=== PATIENT | female | born 1945 | race Hispanic/Latino ===

== ENCOUNTER → 2017-12-23 | Outpatient (CLI) | payer OTHER ==
[~2017-12-23] MED LIST: GABA-531 PO; OXYB5TAB10 PO; TAMS-1 PO
== END | disposition home or self-care (01) ==
LOC: RAH 11:03
PROVIDERS: ATTEND Internal Medicine
DX: R60.0 Localized edema (principal); Z87.891 Personal history of nicotine dependence
CPT/HCPCS: 93971

== ENCOUNTER 2018-01-03 19:08 | Emergency (ER) | payer OTHER ==
[2018-01-03] MEDS ORDERED: ASPIRIN 81MG TAB.CHEW ONE (19:39)
[2018-01-03 20:02] LABS: BASOPHILS % (AUTO) 0.6 % (0.0-5.0); EOSINOPHILS % (AUTO) 0.4 % (0.0-8.0); HEMATOCRIT 36.2 % (36-48); LYMPHOCYTES % (AUTO) 12.3 % (21.0-51.0); MEAN CORPUSCULAR HEMOGLOBIN 30.9 pg (27.0-33.0); MEAN CORPUSCULAR HGB CONC 33.8 g/dL (32.0-36.0); MEAN CORPUSCULAR VOLUME 91.2 fL (79-99); MONOCYTES % (AUTO) 3.9 % (3.0-13.0); NEUTROPHILS % (AUTO) 82.8 % (40.0-77.0); PLATELET COUNT (AUTO) 268 K/uL (130-400); RED BLOOD CELL COUNT(AUTO) 3.97 MIL/uL (4.00-5.50); RED CELL DISTRIBUTION WIDTH 14.9 % (11.0-15.5); WHITE BLOOD COUNT (AUTO) 9.6 K/uL (4.8-10.8)
[2018-01-03 20:14] LABS: INR 1.02 (0.85-1.15); PARTIAL THROMBOPLASTIN TIME 27.9 SEC (26.3-35.5); PROTHROMBIN TIME 10.7 SEC (9.6-11.6)
[2018-01-03 20:23] LABS: POTASSIUM 3.9 mmol/L (3.5-5.1)
[2018-01-03 20:25] LABS: B-TYPE NATRIURETIC PEPTIDE 43 pg/mL (0-100)
[2018-01-03 20:48] LABS: ALBUMIN 3.4 g/dL (3.5-5.0); BILIRUBIN,TOTAL 0.7 mg/dL (0.2-1.0)
== END 2018-01-03 23:24 | disposition home or self-care (01) ==
LOC: EDH 19:08
DX: R07.89 Other chest pain (principal); M54.6 Pain in thoracic spine; M06.9 Rheumatoid arthritis, unspecified; Z88.6 Allergy status to analgesic agent
CPT/HCPCS: 36415; 71045; 78582; 80053; 82550; 83874; 83880; 84484; 85025; 85610; 85730; 93005; 94761; 99285; A9540; A9558

== ENCOUNTER → 2018-07-09 | Outpatient (CLI) | payer OTHER | END | disposition home or self-care (01) | LOC: RAH 12:28 | PROVIDERS: ATTEND Internal Medicine | DX: I70.90 Unspecified atherosclerosis (principal); I25.10 Atherosclerotic heart disease of native coronary artery without angina pectoris; I73.9 Peripheral vascular disease, unspecified | CPT/HCPCS: 93925 ==

== ENCOUNTER → 2018-08-13 | Outpatient (CLI) | payer OTHER | END | disposition home or self-care (01) | LOC: RAH 11:21 | PROVIDERS: ATTEND Internal Medicine | DX: R10.2 Pelvic and perineal pain (principal) | CPT/HCPCS: 76856 ==

== ENCOUNTER → 2018-08-14 | Outpatient (CLI) | payer OTHER | END | disposition home or self-care (01) | LOC: RAH 09:10 | PROVIDERS: ATTEND Internal Medicine | DX: I82.402 Acute embolism and thrombosis of unspecified deep veins of left lower extremity (principal) | CPT/HCPCS: 93971 ==

== ENCOUNTER → 2018-09-26 | Outpatient (CLI) | payer OTHER ==
[~2018-09-26] MED LIST changes: +IOHEXOL 350 MG/ML 100ML INFUS..BTL IV ONE
== END | disposition home or self-care (01) ==
LOC: RAH 08:53
PROVIDERS: ATTEND Internal Medicine
DX: K44.9 Diaphragmatic hernia without obstruction or gangrene (principal); M47.815 Spondylosis without myelopathy or radiculopathy, thoracolumbar region; R59.0 Localized enlarged lymph nodes; K31.89 Other diseases of stomach and duodenum; I70.90 Unspecified atherosclerosis
CPT/HCPCS: 74178; Q9967

== ENCOUNTER → 2018-10-29 | Outpatient (CLI) | payer OTHER ==
[~2018-10-29] MED LIST changes: -IOHEXOL 350 MG/ML 100ML INFUS..BTL IV ONE; +LIDOCAINE 2%-EPI 1:200,000 20 ML VIAL IJ ONE; +LIDOCAINE HCL 1% 20 ML VIAL ONE; +SODIUM BICARB 50MEQ 50ML VIAL ONE
--- NOTE | 2018-10-29 09:00 | NUR ---
U/S GD BX LEFT INGUINAL LYMPH NODE ORDERED PATIENT STATES, "MY LAST DOSE OF MY BLOOD THINNER, ZARELTO 20MG WAS YESTERDAY MORNING." DR. WILKES INFORMED OF LAST DOSE OF ZARELTO. ORDERED TO CALL DR BOATENG'S OFFICE AND ASK DR. BOATENG FOR ORDERS TO STOP BLOOD THINNER INCLUDING ZARELTO 20MG FOR 3 DAYS PRIOR TO RESCHEDULED PROCEDURE. CALLED DR. BOATENG'S OFFICE AND SPOKE TO VARINDER CASTELLANOS. INFORMED HER THAT THE PROCEDURE WOULD NOT BE ABLE TO BE DONE DUE TO THE PATIENT'S LAST DOSE OF ZARELTO 20MG YESTERDAY AND THE HIGH RISK OF BLEEDING. INFORMED EMANUEL THAT THE PATIENT MUST BE OFF OF BLOOD THINNERS INCLUDING ZARELTO FOR AT LEAST [address] WILKES IS ASKING FOR ORDERS FROM DR. BOATENG IF OK WITH THE PATIENT BEING OFF OF THE BLOOD THINNER FOR 3 DAYS. EMANUEL STATED, "I'LL ASK DR. BOATENG AND WE WILL RESCHEDULE PATIENT ONCE WE HAVE DR. BOATENG'S ORDER. INSTRUCTIONS GIVEN TO PATIENT AND VERBALIZED UNDERSTANDING. INSTRUCTED PT MUST BE OFF OF BLOOD THINNERS FOR 3 DAYS PRIOR TO DOING PROCEDURE. DISCHARGED VIA AMBULATORY, STABLE, AAO X3 WITH NO C/O PAIN.
[2018-10-29 09:08] LABS: INR 1.18 (0.85-1.15); PARTIAL THROMBOPLASTIN TIME 33.8 SEC (26.3-35.5); PROTHROMBIN TIME 12.3 SEC (9.6-11.6)
== END ==
LOC: RAH 07:58
PROVIDERS: ATTEND Internal Medicine
DX: R59.0 Localized enlarged lymph nodes (principal); Z88.8 Allergy status to other drugs, medicaments and biological substances; Z91.041 Radiographic dye allergy status; Z79.899 Other long term (current) drug therapy; Z87.891 Personal history of nicotine dependence; Z83.3 Family history of diabetes mellitus; Z98.890 Other specified postprocedural states
CPT/HCPCS: 36415; 85610; 85730; J3490 ×2

== ENCOUNTER → 2018-11-18 | Outpatient (CLI) | payer OTHER ==
[~2018-11-18] MED LIST changes: -LIDOCAINE 2%-EPI 1:200,000 20 ML VIAL IJ ONE
--- NOTE | 2018-11-18 11:30 | NUR ---
U/S GD LT INGUINAL LYMPH NODE BX PROCEDURE PERFORMED BY DR Farida PATRICIA. PUNCTURE SITE LT SIDE OF PELVIS AND PATIENT TOLERATED PROCEDURE WELL. SPECIMEN X 5 COLLECTED AND SENT TO LAB. END OF PROCEDURE AT 1100. BIOPSY NEEDLE REMOVED AND DRESSING APPLIED. NO BLEEDING NOTED. DISCHARGE INSTRUCTIONS GIVEN TO PATIENT AND VERBALIZED UNDERSTANDING. DISCHARGED VIA AMBULATION AT 1130. AAO X3 WITH NO C/O PAIN.
== END ==
LOC: RAH 09:17
PROVIDERS: ATTEND Internal Medicine
DX: R59.0 Localized enlarged lymph nodes (principal)
CPT/HCPCS: 38505; 76942; 88108; 88305 ×2; J3490

== ENCOUNTER → 2020-06-16 | Outpatient (CLI) | payer OTHER ==
[~2020-06-16] MED LIST changes: -LIDOCAINE HCL 1% 20 ML VIAL ONE; -OXYB5TAB10 PO; +OXYB5TAB15 PO; -SODIUM BICARB 50MEQ 50ML VIAL ONE
== END | disposition home or self-care (01) ==
LOC: OIH 12:53
PROVIDERS: ATTEND Internal Medicine
DX: M19.032 Primary osteoarthritis, left wrist (principal); M19.031 Primary osteoarthritis, right wrist; M06.4 Inflammatory polyarthropathy; M77.32 Calcaneal spur, left foot; M77.31 Calcaneal spur, right foot; M19.072 Primary osteoarthritis, left ankle and foot; M19.071 Primary osteoarthritis, right ankle and foot; M20.12 Hallux valgus (acquired), left foot
CPT/HCPCS: 73100; 73630